=== PATIENT | female | born 1975 | race African-American/Black ===

== ENCOUNTER 2020-02-10 14:57 | Emergency (ER) | payer SELFPAY ==
[~2020-02-10] VITALS: Ht 162.6 cm; Wt 68.0 kg
[2020-02-10 15:07] VITALS: BP 129/92
[2020-02-10 15:58] LABS: Amphetamine Screen, Urine POSITIVE (NEGATIVE); Barbiturate Scree,Urine NEGATIVE (NEGATIVE); Benzodiazephine Screen, Urine NEGATIVE (NEGATIVE); Cannabinoid Screen, Urine NEGATIVE (NEGATIVE); Cocaine Screen, Urine NEGATIVE (NEGATIVE); Phencyclidine Screen, Urine NEGATIVE (NEGATIVE)
[2020-02-10 16:18] LABS: Opiate Scree,Urine NEGATIVE (NEGATIVE)
[2020-02-10 16:31] LABS: Urine WBC 0-5 /hpf (0 - 5)
[2020-02-10 16:32] LABS: Urine Bacteria FEW /hpf (None Seen)
[2020-02-10 16:38] LABS: Urine Blood 250 /uL (Negative)
[2020-02-10 16:57] LABS: Alcohol, Urine < 3.0 mg/dL (0-10)
[2020-02-10 17:47] LABS: Albumin 3.7 g/dL (3.4-5.0); Calcium 8.6 mg/dL (8.5-10.1); Potassium 3.4 mmol/L (3.5-5.1)
[2020-02-10 17:51] LABS: BUN/Creatinine Ratio 9.5; Bilirubin, Total 0.2 mg/dL (0.2-1.0); Total Protein 7.9 g/dL (6.4-8.2)
[2020-02-10 18:07] LABS: Basophils # (auto) 0.1 10 ^3/uL (0-0.2); Basophils % (auto) 1.1 % (0.0-2.0); Eosinophils # (auto) 0.5 10 ^3/uL (0-0.8); Eosinophils % (auto) 9.2 % (0.0-7.0); Hematocrit 39.4 % (36.0-46.0); Hemoglobin 12.4 g/dL (12.2-16.2); Lymphocytes # (auto) 1.9 10 ^3/uL (0.4-5.4); Lymphocytes % (auto) 35.6 % (10.0-50.0); Mean Corpuscular Hemoglobin 29.7 pg (28.0-32.0); Mean Corpuscular Hgb Conc. 31.5 g/dL (32.0-36.0); Mean Corpuscular Volume 94.4 fL (80.0-100.0); Monocytes # (auto) 0.6 10 ^3/uL (0-1.3); Monocytes % (auto) 10.6 % (0.0-12.0); Neutrophils # (auto) 2.3 10 ^3/uL (1.6-8.6); Neutrophils % (auto) 43.5 % (37.0-80.0); Platelet Count (auto) 369 10^3/uL (140-450); Red Blood Cells 4.17 10^6/uL (4.0-5.20); Red Cell Distribution Width 14.2 % (11.8-14.3); White Blood Cell 5.3 10^3/uL (4.4-10.8)
[2020-02-10] MEDS ORDERED: POTASSIUM CHL 20 Meq TABLET PO ONE (18:15)
== END 2020-02-10 19:35 | disposition home or self-care (01) ==
LOC: ER 14:57
DX: D25.9 Leiomyoma of uterus, unspecified (principal); N39.0 Urinary tract infection, site not specified; F15.10 Other stimulant abuse, uncomplicated; Z71.51 Drug abuse counseling and surveillance of drug abuser
CPT/HCPCS: 36415; 76830; 76856; 80053; 80307; 81001; 84702; 85025